=== PATIENT | female | born 1955 | race Caucasian/White ===

== ENCOUNTER 2017-11-01 15:22 | Observation (INO) ==
--- NOTE | 2017-11-01 20:25 | Internal Med History&Physical ---
Date of Encounter: 11/01/17 Time of Encounter: 20:25 Internal Medicine - H&P: HPI Chief complaint: left flank pain, Chest pain History of present illness: Ms. Martinez is a 62 year old female with past medical history of end-stage renal disease on hemodialysis Thursday via left upper arm AV fistula who presented from outside hospital with abdominal pain and back pain that started in a.m. and did not respond to medical medication as per care home staff. The patient describes the pain to be on the left side on at her left flank that is radiating from back to the front dull aching in nature 9 out of 10 in intensity worsening over time. The patient also described several episode of loose diarrhea for the last 24 hours the patient denied any exacerbation factor or alleviating factors. CAT scan of the abdomen without contrast revealed bilateral pleural effusion, moderately enlarged heart with coronary artery calcification. Also adjacent nonobstructive getting stone was noted in the inferior pole of the left kidney. Mild aneurysmal dilatation of the infrarenal hour crura was also noted. Chest x-ray reveals cardiomegaly, pleural effusion and pulmonary congestion that is suggesting of congestive heart failure, her first troponin was was no significant abnormalities. Due to the lack of availability of maintenance hemodialysis at that hospital the patient was transferred to [facility] for further evaluation and management. Internal Medicine - H&P: Meds Aspirin [Lo-Dose Aspirin EC] 81 mg PO DAILY 11/01/17 [History] Atorvastatin [Lipitor] 80 mg PO HS 11/01/17 [History] Clopidogrel [Plavix] 75 mg PO DAILY 11/01/17 [History] Famotidine [Heartburn Prevention] 20 mg PO DAILY 11/01/17 [History] Ferrous Sulfate [Iron] 325 mg PO DAILY 11/01/17 [History] Insulin Glargine,Hum.rec.anlog [Basaglar Kwikpen U-100] 7 unit SQ HS 11/01/17 [ History] Insulin LISPRO [Humalog Kwikpen U-100] 5 unit SQ ACHS 11/01/17 [History] LevETIRAcetam [Keppra] 750 mg PO SUMOWEFR 11/01/17 [History] LevETIRAcetam [Keppra] 750 mg PO TUTHSA@0800,199911/01/17 [History] Levothyroxine Sodium [Levoxyl] 25 mcg PO DAILY 11/01/17 [History] Loperamide [Imodium] 4 mg PO PRN PRN MDD 6 tablets 11/01/17 [History] Loratadine [Allergy Relief] 10 mg PO DAILY 11/01/17 [History] Losartan Potassium [Cozaar] 50 mg PO DAILY 11/01/17 [History] Melatonin [Melatin] 3 mg PO HS 11/01/17 [History] Ondansetron HCl [Zofran] 4 mg PO Q6H PRN 11/01/17 [History] Renal Vitamin [Renal Caps Softgel] 1 mg PO DAILY 11/01/17 [History] Sevelamer [Renvela] 800 mg PO TID 11/01/17 [History] Bisoprolol Fumarate 2.5 mg PO QAM 11/02/17 [History] Lidocaine/Prilocaine [Medolor Blaine 2.5-2.5% Crm-Dress] 1 each TP MOWEFR 11/02/17 [History] Tiotropium [Spiriva] 18 mcg IH QAM 11/02/17 [History] LORazepam [Ativan] 0.5 mg PO BID 4 Days #8 tablet 11/06/17 [Rx] Tramadol HCl [Ultram] 50 mg PO Q6H PRN 4 Days #16 tablet 11/06/17 [Rx] 3 Allergy/AdvReac Type Severity Reaction Status Date / Time Iodinated Contrast- Oral and Allergy Rash Verified 11/01/17 22:30 IV Dye Sulfa (Sulfonamide Allergy Rash Verified 11/01/17 22:30 Antibiotics) sulfamethoxazole Allergy Rash Verified 11/01/17 22:30 [From Bactrim] trimethoprim Allergy Rash Verified 11/01/17 22:30 All Systems PM: A 10-system review of systems was performed and is negative for pertinent findings except as documented above in the HPI. - Constitutional Constitutional: no chills, no fever(s), no night sweats - Cardiovascular Cardiovascular ROS IM: chest pain, no diaphoresis, no dyspnea, no lightheadedness, no palpitations, no syncope - Respiratory Respiratory: no cough, no dyspnea, no wheezing, no excessive phlegm production - Gastrointestinal Gastrointestinal: diarrhea, no abdominal pain, no hematemesis, no hematochezia, no melena, no nausea, no vomiting - Genitourinary Genitourinary: no change in urinary stream, no dysuria, no flank pain, no hematuria - Neurological Neurological ROS: no confusion, no convulsions, no focal weakness, no numbness, no tingling, no tremor(s) - Constitutional Vitals: Temp Pulse Resp BP Pulse Ox 97.7 F 69 14 178/98 99 11/01/17 19:04 11/01/17 19:04 11/01/17 19:04 11/01/17 19:04 11/01/17 19:04 General appearance: Present: A&O X 3 - Head Head exam: Present: atraumatic, normocephalic - Neck Neck exam general surgery: Present: supple, trachea midline. Absent: lymphadenopathy - Respiratory Respiratory exam: Present: CTAB. Absent: accessory muscle use, rales, rhonchi, wheezes - Cardiovascular Cardiovascular exam: Present: RRR, +S1, +S2. Absent: diastolic murmur, gallop, rubs, systolic murmur - GI/Abdominal GI/Abdominal exam: Present: normal bowel sounds, soft, no peritoneal signs. Absent: distended, tenderness - Extremities Exam Extremities exam: Present: warm, radial pulses palpable and symmetrical. Absent : calf tenderness, cyanotic, pedal edema Internal Med - H&P Results - Labs CBC & Chem 7: 11/06/17 04:12 11/06/17 04:12 - Assessment and plan (1) Congestive heart failure (CHF) Status: Chronic Assessment and plan: Reported chest pain and flank pain, her imaging studies are suggestive of bilateral pleural effusion and cardiomegaly and CHF exacerbation not be excluded Giving that the patient is ESRD, utilizing diuretics for volume control is a challenging. Nephrology will be consulted to consider pure ultrafiltration for volume control. We will also recommend pulmonary consult for further evaluation of bilateral pleural effusion - CPP x 1 more, 8 hr after the 1st one - EKG in AM - ASA - O2 to keep SpO2 > 92% - 2D Echo - CBCD, BMP in AM - Fasting lipids - Tylenol 650 mg PO q 4-6 hr PRN pain - Home meds Qualifiers: Heart failure type: diastolic Heart failure chronicity: acute on chronic Qualified Code(s): I50.33 - Acute on chronic diastolic (congestive) heart failure (2) Essential (primary) hypertension Status: Chronic (3) ESRD (end stage renal disease) Status: Chronic (4) Anemia in chronic kidney disease (CKD) Status: Chronic Assessment and plan: HGB target 10-11, nephrology to f/u Qualifiers: Chronic kidney disease stage: on chronic dialysis Qualified Code(s): N18.6 - End stage renal disease; D63.1 - Anemia in chronic kidney disease; Z99.2 - Dependence on renal dialysis (5) Chronic kidney disease-mineral and bone disorder Status: Chronic Assessment and plan: Cont phos binder, phos restricted diet. (6) Left flank pain Status: Resolved Assessment and plan: Most likely musclo-skeletal related (7) DVT prophylaxis Status: Acute Assessment and plan: We will place SCDs - Time Spent With Patient Total time spent is greater than 50% in coordination of care (as documented) at patient's floor/unit and/or counseling patient:
[2017-11-01] MEDS ORDERED: traMADol 50 MG TABLET PO PRN (22:27)
[2017-11-01] MEDS ORDERED: Ondansetron ODT 4 MG TAB.RAPDIS PO PRN (22:27)
[2017-11-01] MEDS ORDERED: *HR* Dextrose 50 % in Water (Syg) 50 ML SYRINGE IVP PRN (22:31)
[2017-11-01] MEDS ORDERED: Dextrose Gel 15 GM/37.5 ML TUBE PO PRN ×2 (22:31)
[2017-11-01] MEDS ORDERED: D5% in Water 1,000 ML IVC PRN (22:31)
[2017-11-01] MEDS ORDERED: Naloxone 0.4 MG/ML INJ IVP PRN (22:58)
[2017-11-01] MEDS: *HR* LORazepam 0.5 MG TABLET PO SCH (23:20)
[2017-11-01 23:57] LABS: Chol/HDL Ratio 3.5 (0-4.9)
[2017-11-02 00:48] LABS: Activated Partial Thrombo Time 28.5 Seconds (26.0-36.0); INR 1.1; Prothrombin Time 11.5 Seconds (9.4-12.1)
[2017-11-02 05:16] LABS: Basophils % 0.3 %; Eosinophils # 0.3 K/mcL (0.0-0.6); Eosinophils % 3.6 %; Hematocrit 23.3 % (35.3-44.9); Immature Granulocytes % 0.4 % (0-4); Lymphocytes # 1.8 K/mcL (0.6-4.6); Lymphocytes % 24.6 %; Mean Corpuscular Hemoglobin 27.7 pg (28.0-33.3); Mean Corpuscular Volume 92.1 fL (83.0-100.0); Mean Platelet Volume 10.3 fL (9.4-12.4); Monocytes # 0.3 K/mcL (0.0-1.3); Platelet Count 203 K/mcL (140-400); Red Blood Count 2.53 M/mcL (3.82-4.97); Red Cell Distribution Width 16.6 % (11.5-14.5); Segmented Neutrophils % 67.1 %
[2017-11-02 05:32] LABS: Albumin 3.5 g/dL (3.5-5.7); Albumin/Globulin Ratio 1.4 (1.1-2.2); Bilirubin,Total 0.4 mg/dL (0.3-1.0); Globulin 2.5 g/dL (2.4-3.5); Magnesium 2.4 mg/dL (1.6-2.6); Potassium 5.1 mEq/L (3.5-5.1)
[2017-11-02] MEDS: Levothyroxine 25 MCG TABLET PO SCH (06:06)
[2017-11-02] MEDS ORDERED: NON-FORMULARY MEDICATION 1 EACH EACH (Insulin Lispro [Humalog Kwikpen U-100] 5 UNIT) SQ SCH (08:00)
[2017-11-02] MEDS: Aspirin Enteric Coated 81 MG Tablet PO SCH (08:16)
[2017-11-02] MEDS: Loratadine 10 MG TABLET PO SCH (08:16)
[2017-11-02] MEDS: Famotidine 20 MG TABLET PO SCH (08:16)
[2017-11-02] MEDS: BISOPROLOL FUMARATE 5 MG PO SCH (08:17)
[2017-11-02] MEDS: Insulin LISPRO 300 UNITS/3 ML VIAL SQ SCH ×4 (08:17→21:54)
[2017-11-02] MEDS: Renal Vitamin 1 MG CAPSULE PO SCH (08:17)
[2017-11-02] MEDS: *HR* LORazepam 0.5 MG TABLET PO SCH ×2 (08:17→21:54)
[2017-11-02] MEDS ORDERED: LEVETIRACETAM 750 MG PO SCH ×2 (09:00)
[2017-11-02] MEDS: levETIRAcetam 250 MG TABLET PO SCH (11:46)
--- NOTE | 2017-11-02 14:47 | Nephrology Consult Note ---
Date of Encounter: 11/02/17 Time of Encounter: 14:41 Assessment and Plan (1) ESRD (end stage renal disease) on dialysis Current Visit: Yes Status: Acute HD MWF in [place] with Dr. Griffith. Avoid nephrotoxins and renal dose all medications. HD ordered for today. (2) Anemia in chronic kidney disease (CKD) Current Visit: Yes Status: Acute Goal Hgb 10-11. Hgb is 7. Will order iron profile. Aranesp ordered, will hold off on transfusion since patient is not symptomatic. Qualifiers: Chronic kidney disease stage: on chronic dialysis Qualified Code(s): N18.6 - End stage renal disease; D63.1 - Anemia in chronic kidney disease; Z99.2 - Dependence on renal dialysis (3) Congestive heart failure (CHF) Current Visit: Yes Status: Acute Per primary team. Qualifiers: Qualified Code(s): I50.9 - Heart failure, unspecified History of Present Illness - Reason for Consult Consult date: 11/02/17 end stage renal disease - Chief Complaint abdominal/back pain - History of Present Illness Ms. Martinez is a 62 year old female with ESRD on HD MWF in [place]. She is under the care of Dr. Griffith. She was sent due to a water issue at her home HD facility. Patient is poor historian and most information was found in chart. Upon examination, patient would not state name, , or location. I asked RN if this was normal for her, she did call [facility] and they reported this is not normal for her, she is typically A/O. This is her usual HD day and HD will be ordered by Dr. Espinal. Past Med Surg Social Fam HX - Past Medical History Medical history: CHF, CVA, hypertension Additional medical history: psychosis anemia Psychiatric history: schizophrenia - Social History Smoking Status: Smoker, status unknown Medications and Allergies Aspirin [Lo-Dose Aspirin EC] 81 mg PO DAILY 11/01/17 [History] Atorvastatin [Lipitor] 80 mg PO HS 11/01/17 [History] Clopidogrel [Plavix] 75 mg PO DAILY 11/01/17 [History] Famotidine [Heartburn Prevention] 20 mg PO DAILY 11/01/17 [History] Ferrous Sulfate [Iron] 325 mg PO DAILY 11/01/17 [History] Insulin Glargine,Hum.rec.anlog [Basaglar Kwikpen U-100] 7 unit SQ HS 11/01/17 [ History] Insulin LISPRO [Humalog Kwikpen U-100] 5 unit SQ ACHS 11/01/17 [History] LORazepam [Ativan] 0.5 mg PO BID 11/01/17 [History] LevETIRAcetam [Keppra] 750 mg PO SUMOWEFR 11/01/17 [History] LevETIRAcetam [Keppra] 750 mg PO TUTHSA@0800,199911/01/17 [History] Levothyroxine Sodium [Levoxyl] 25 mcg PO DAILY 11/01/17 [History] Loperamide [Imodium] 4 mg PO PRN PRN MDD 6 tablets 11/01/17 [History] Loratadine [Allergy Relief] 10 mg PO DAILY 11/01/17 [History] Losartan Potassium [Cozaar] 50 mg PO DAILY 11/01/17 [History] Melatonin [Melatin] 3 mg PO HS 11/01/17 [History] Ondansetron HCl [Zofran] 4 mg PO Q6H PRN 11/01/17 [History] Renal Vitamin [Renal Caps Softgel] 1 mg PO DAILY 11/01/17 [History] Sevelamer [Renvela] 800 mg PO TID 11/01/17 [History] Tramadol HCl [Ultram] 50 mg PO Q6H PRN 11/01/17 [History] Bisoprolol Fumarate 2.5 mg PO QAM 11/02/17 [History] Lidocaine/Prilocaine [Medolor [place] 2.5-2.5% Crm-Dress] 1 each TP MOWEFR 11/02/17 [History] Tiotropium [Spiriva] 18 mcg IH QAM 11/02/17 [History] 3 Allergy/AdvReac Type Severity Reaction Status Date / Time Iodinated Contrast- Oral and Allergy Rash Verified 11/01/17 22:30 IV Dye Sulfa (Sulfonamide Allergy Rash Verified 11/01/17 22:30 Antibiotics) sulfamethoxazole Allergy Rash Verified 11/01/17 22:30 [From Bactrim] trimethoprim Allergy Rash Verified 11/01/17 22:30 Review of Systems ROS unobtainable: due to mental status Exam - Vital Signs Vital signs: Initial Vital Signs Temp Pulse Resp BP Pulse Ox 97.7 F 69 14 178/98 99 11/01/17 19:04 11/01/17 19:04 11/01/17 19:04 11/01/17 19:04 11/01/17 19:04 Vital Signs - Last 8 Hours Temp Pulse Resp BP Pulse Ox 11/02/17 10:01 98.9 F 69 18 154/83 100 Intake and Output 11/01/17 11/02/17 11/02/17 23:59 07:59 15:59 Intake Total 100 / 100 Output Total 200 / 200 Balance -100 / -100 Intake: Oral 100 / 100 Output: Urine 200 / 200 Other: Meal Lunch Percent of Meal Consumed 5% Stool Size Large Stool Consistency soft Stool Color Brown # Voids 1 # Bowel Movements 1 Weight 58.1 kg 58.2 kg Blood Glucose* 145 153 194 Patient Weight 11/02/17 23:59 Weight 58.2 kg - General Appearance General appearance: chronically ill, frail EENT: ATNC Neck: supple Respiratory: clear Cardiology: no edema, normal S1, normal S2 - Dialysis Access Dialysis Vascular Access: Arteriovenous Fistula thrill: Yes bruit: Yes Gastrointestinal: normoactive bowel sounds, no tenderness, no guarding Integumentary: no rash, warm and dry Neurologic: confused Psychiatric: mood/affect appropriate, cooperative Results - Lab Results 11/02/17 05:00 11/02/17 05:00 Most recent lab results Calcium 9.0 mg/dL (8.6-10.3) 11/02/17 05:00 Phosphorus 6.0 mg/dL (2.7-4.5) H 11/02/17 05:00 Magnesium 2.4 mg/dL (1.6-2.6) 11/02/17 05:00 Consult Discharge Plan - Plan Referrals: NONE,PCP [Primary Care Provider] -
[2017-11-02 15:18] LABS: Bilirubin,Urine Negative (Negative); Blood,Urine Large (Negative); Clarity,Urine Clear (Clear); Color,Urine Yellow (Yellow); Glucose,Urine (UA) Normal (Normal); Ketones,Urine Negative (Negative); Leukocyte Esterase,Urine Negative (Negative); Nitrite,Urine Negative (Negative); Protein,Urine Negative (Neg-Trace); Specific Gravity,Urine 1.025 (1.010-1.025); Urobilinogen,Urine Normal (Normal)
[2017-11-02 15:20] LABS: Bacteria,Urine None Seen per hpf (None-Few); Hyaline Casts,Urine None Seen per lpf (None-Few); Squamous Epithelial Cell,Urine Many per lpf (None-Few); WBC,Urine 0-3 per hpf (0-3)
[2017-11-02] MEDS ORDERED: 0.9 % Sodium Chloride 250 ML IVC PRN (15:41)
[2017-11-02 15:43] LABS: Hepatitis B Surface Antigen Nonreactive (Nonreactive)
[2017-11-02] MEDS ORDERED: 0.9 % Sodium Chloride 1,000 ML PRIME SCH (15:45)
[2017-11-02 15:50] LABS: Hepatitis B Surface Antibody 8.01 mIU/mL
--- NOTE | 2017-11-02 16:27 | Electrocardiograph Report ---
[place] [id number] Test Date: 2017-11-01 Pat Name: Zamzam Martinez Department: 111 Room: 2A22 Gender: F Sustainability Analyst: GYPSY : 1955 Requested By: Dorie Hammer Order Number: [id number] Reading MD: Rachele Cheng Measurements Intervals [place] Rate: 70 P: 16 RI: 130 QRS: 49 QRSD: 89 T: 61 QT: 422 QTc: 443 Interpretive Statements SINUS RHYTHM MODERATE T-WAVE ABNORMALITY, CONSIDER ANTERIOR ISCHEMIA Electronically Signed On 11-02-2017 16:25:43 EDT by Rachele Cheng
[2017-11-02] MEDS: *HR* Heparin 5,000 UNIT/ML VIAL SQ SCH (17:47)
[2017-11-02] MEDS ORDERED: NON-FORMULARY MEDICATION 1 EACH EACH (Insulin Glargine,Hum.Rec.Anlog [Basaglar Kwikpen U-1 SQ SCH (21:00)
[2017-11-02] MEDS: Melatonin 3 MG TABLET PO SCH (21:54)
[2017-11-02] MEDS: Insulin DETEMIR 100 UNIT/ML X5UNITS SQ SCH (21:54)
[2017-11-02 22:55] LABS: Estimated Average Glucose 126 mg/dl
--- NOTE | 2017-11-02 23:18 | Internal Med Progress Note ---
Date of Encounter: 11/02/17 Time of Encounter: 23:18 - Assessment and plan (1) Chest pain Current Visit: Yes Status: Acute Qualifiers: Chest pain type: other chest pain Qualified Code(s): R07.89 - Other chest pain; R07.8 - Other chest pain (2) Left flank pain Current Visit: Yes Status: Acute (3) Difficulty breathing Current Visit: Yes Status: Acute (4) Type 2 diabetes mellitus with ESRD (end-stage renal disease) Current Visit: Yes Status: Acute (5) Hypertensive renal disease with renal failure Current Visit: Yes Status: Acute (6) Anemia in chronic kidney disease (CKD) Current Visit: Yes Status: Acute Qualifiers: Chronic kidney disease stage: on chronic dialysis Qualified Code(s): N18.6 - End stage renal disease; D63.1 - Anemia in chronic kidney disease; Z99.2 - Dependence on renal dialysis (7) Acute on chronic diastolic heart failure Current Visit: Yes Status: Acute - Time Spent With Patient Total time spent is greater than 50% in coordination of care (as documented) at patient's floor/unit and/or counseling patient: 25 - 35 minutes - Subjective Interval history: .. The patient feels good today. She had hemodialysis today. Denies chest pain. Denies difficulty breathing. She does have mild cough but not wheezing. He denies abdominal pain, nausea and vomiting. She does not make any urine. OBJECTIVE: .. Skin: Free of rash and discoloration ENMT: Oral/pharyngeal mucosa is normal in appearance. Eyes: Sclera is white. There is no discharge from eyes. Respiratory: Normal breath sounds; no crackles or wheezes. CV: Heart is regular; no gallop or murmur. GI: Abdomen is soft and not tender. There is no palpable mass or visceromegaly. Neuro: There is no focal deficits. ASSESSMENT AND PLAN: .. Chest pain/left flank pain. Troponin is normal. EKG is normal too. The pain is likely musculoskeletal. This may be early pneumonia. Will repeat chest x- ray. Difficulty breathing. Likely secondary to fluid overload in end-stage renal disease.There may be some component from diastolic heart failure. We appreciate help from nephrology. We are ordering a chest x-ray for tomorrow. End-stage renal disease on hemodialysis. It is secondary to long-standing type 2 diabetes mellitus and hypertension. She has developed anemia and chronic renal disease. Hypertension is treated with losartan. Type 2 diabetes mellitus is treated with diabetic diet, Levemir and Humalog. Anemia of chronic renal disease is treated with Aranesp and ferrous sulfate. Chronic diastolic heart failure, with possible acute component. See echocardiogram. It shows ejection fraction of 50-55%. It shows diastolic dysfunction with elevated filling pressures. Treatment is with mild fluid restriction and hemodialysis. NOTES: Ordering CBC and BMP in the morning. DISPOSITION: We will discharge her home, but stable. - Constitutional Vitals: Temp Pulse Resp BP Pulse Ox 97.7 F 69 18 140/70 100 11/02/17 19:50 11/02/17 14:50 11/02/17 19:50 11/02/17 19:50 11/02/17 14:50 General appearance: Present: A&O X 3 Internal Medicine: Result - Labs CBC & Chem 7: 11/02/17 05:00 11/02/17 05:00 Labs: Short CBC 11/02/17 Range/Units 05:00 WBC 7.4 (4.3-11.1) K/mcL Hgb 7.0 L (11.5-15.4) g/dL Hct 23.3 L (35.3-44.9) % Plt Count 203 (140-400) K/mcL Neutrophils # 5.0 (1.6-8.9) K/mcL BMP 11/02/17 05:00 Sodium 137 Potassium 5.1 Chloride 104 Carbon Dioxide 23 BUN 54 H Creatinine 7.36 H Glucose 151 H Calcium 9.0 Cardiac Enzymes 11/01/17 11/02/17 11/02/17 Range/Units 23:24 05:00 11:29 Troponin I < 0.03 < 0.03 < 0.03 (< 0.04) ng/mL Liver Function 11/02/17 Range/Units 05:00 Total Bilirubin 0.4 (0.3-1.0) mg/dL AST 10 L (13-39) Units/L ALT 7 (7-52) Units/L Alkaline Phosphatase 200 H (34-104) Units/L Albumin 3.5 (3.5-5.7) g/dL Urine 11/02/17 Range/Units 14:56 Urine Color Yellow (Yellow) Urine Clarity Clear (Clear) Urine pH 6.0 (5.0-8.0) pH Units Ur Specific [place] 1.025 (1.010-1.025) Urine Protein Negative (Neg-Trace) mg/dL Urine Glucose (UA) Normal (Normal) mg/dL - ABG Interpretation ABG results: PT/INR, D-dimer PT 11.5 Seconds (9.4-12.1) 11/01/17 23:24 - Impressions Impressions Echocardiogram 11/02/17 06:17 Impressions: LVEF 50-55%. Mild segmental LV dysfunction. Diastolic dysfunction with elevated filling pressures. Normal right ventricular structure and function. Severely dilated left atrium. Mild-moderate mitral regurgitation. Mild-moderate tricuspid regurgitation. Mild pulmonic regurgitation. Moderate pulmonary hypertension. There is a small pericardial effusion present along the inferolateral border of the LV. There is no echocardiographic evidence of tamponade. Left Ventricular Wall Motion: Rest Echo Findings The mid inferior septal and basal inferior septal payne were hypokinetic. All other wall segments showed normal motion. Findings: Study Quality * Technically adequate exam. ECG Findings * Normal sinus rhythm. Left Ventricle * LVEF 50-55%. * Diastolic dysfunction with elevated filling pressures. * Normal LV chamber size and wall thickness. Right Ventricle * Normal right ventricular structure and function. Left Atrium * Severely dilated left atrium. Right Atrium * Normal right atrial size. Mitral Valve * Normal mitral valve structure. * No mitral stenosis. * Mild mitral annular calcification * Mild-moderate mitral regurgitation. Aortic Valve * No aortic regurgitation. * Trileaflet aortic valve. * Mildly thickened and calcified aortic valve leaflets. * No aortic stenosis. Tricuspid Valve * Normal tricuspid valve structure. * Mild-moderate tricuspid regurgitation. * Estimated RA pressure is 8 mmHg. * Estimated RVSP is 56 mmHg. * Moderate pulmonary hypertension. Pulmonic Valve * Pulmonic valve is not well visualized. * No pulmonic stenosis. * Mild pulmonic regurgitation. Pulmonary Artery * Pulmonary artery not well visualized. Aorta * Normally sized aortic root. Pericardium * There is a small pericardial effusion present along the inferolateral border of the LV. * There is no echocardiographic evidence of tamponade. Interatrial Septum * No evidence of PFO by color Doppler. IVC * The IVC is not dilated. * < 50% respiratory change. Consult Discharge Plan - Plan Referrals: NONE,PCP [Primary Care Provider] -
[2017-11-03] MEDS: Levothyroxine 25 MCG TABLET PO SCH (06:32)
[2017-11-03] MEDS: *HR* Heparin 5,000 UNIT/ML VIAL SQ SCH ×2 (06:32→16:25)
[2017-11-03 07:22] LABS: Basophils % 0.3 %; Eosinophils # 0.2 K/mcL (0.0-0.6); Eosinophils % 2.6 %; Hematocrit 22.8 % (35.3-44.9); Immature Granulocytes % 0.3 % (0-4); Lymphocytes # 1.9 K/mcL (0.6-4.6); Lymphocytes % 27.8 %; Mean Corpuscular HGB Conc 30.7 g/dL (31.6-35.5); Mean Corpuscular Hemoglobin 27.6 pg (28.0-33.3); Mean Corpuscular Volume 89.8 fL (83.0-100.0); Mean Platelet Volume 10.5 fL (9.4-12.4); Monocytes # 0.4 K/mcL (0.0-1.3); Monocytes % 5.1 %; Neutrophils # 4.4 K/mcL (1.6-8.9); Platelet Count 219 K/mcL (140-400); Red Blood Count 2.54 M/mcL (3.82-4.97); Red Cell Distribution Width 16.3 % (11.5-14.5); Segmented Neutrophils % 63.9 %
[2017-11-03] MEDS: Insulin LISPRO 300 UNITS/3 ML VIAL SQ SCH ×4 (07:42→20:54)
[2017-11-03] MEDS: Aspirin Enteric Coated 81 MG Tablet PO SCH (07:43)
[2017-11-03] MEDS: *HR* LORazepam 0.5 MG TABLET PO SCH ×2 (07:43→20:35)
[2017-11-03] MEDS: Loratadine 10 MG TABLET PO SCH (07:43)
[2017-11-03] MEDS: Famotidine 20 MG TABLET PO SCH (07:43)
[2017-11-03] MEDS: Renal Vitamin 1 MG CAPSULE PO SCH (07:44)
[2017-11-03] MEDS: BISOPROLOL FUMARATE 5 MG PO SCH (07:44)
[2017-11-03 07:47] LABS: Calcium 9.2 mg/dL (8.6-10.3)
[2017-11-03] MEDS: levETIRAcetam 250 MG TABLET PO SCH ×2 (07:50→20:53)
[2017-11-03 08:07] LABS: Vitamin B12 666 pg/mL (250-1100)
[2017-11-03 08:18] LABS: Folate > 22.3 ng/mL (3.0-16.0)
--- NOTE | 2017-11-03 10:55 | Internal Med Progress Note ---
Date of Encounter: 11/03/17 Time of Encounter: 10:53 - Assessment and plan (1) ESRD (end stage renal disease) Current Visit: Yes Status: Chronic Assessment and plan: Management per nephrology (2) Anemia in chronic kidney disease (CKD) Current Visit: Yes Status: Chronic Assessment and plan: Hb 7 Not at goal Type and screen ordered Discussed with nephrology, for possible transfusion during HD Qualifiers: Chronic kidney disease stage: on chronic dialysis Qualified Code(s): N18.6 - End stage renal disease; D63.1 - Anemia in chronic kidney disease; Z99.2 - Dependence on renal dialysis (3) Chronic kidney disease-mineral and bone disorder Current Visit: Yes Status: Acute (4) Congestive heart failure (CHF) Current Visit: Yes Status: Acute Assessment and plan: ECHO noted for EF of 50-55%, diastolic dysfunction with elevated filling pressures, continue HD CXR shows pulmonary edema, continue fluid restriction Qualifiers: Heart failure type: diastolic Heart failure chronicity: acute on chronic Qualified Code(s): I50.33 - Acute on chronic diastolic (congestive) heart failure (5) Essential (primary) hypertension Current Visit: Yes Status: Chronic Assessment and plan: currently controlled, continue same meds (6) Left flank pain Current Visit: Yes Status: Acute Assessment and plan: see below (7) Chest pain Current Visit: Yes Status: Acute Assessment and plan: Trop and EKG unremarkable, however, CXR with pleural effusion L>R Also shows possible retrocardiac infiltrate Patient has no cough, afebrile, no white count It is possible that patient's pain is pleuritic due to pleural effusion For Continued HD, will assess with Chest CT and for thoracentensis if pleural effusion is persistent Qualifiers: Chest pain type: other chest pain Qualified Code(s): R07.89 - Other chest pain; R07.8 - Other chest pain - Time Spent With Patient Total time spent is greater than 50% in coordination of care (as documented) at patient's floor/unit and/or counseling patient: - Subjective Interval history: Seen and evaluated at the bedside she is oriented to place and person only, disoriented to time, baseline unknown She is laying flat without any form of distress We will transfuse with blood today (2 units with HD) Rpt CXR noted for pulmonary edema as well as bilateral pleural effusions L>R, possible retrocardiac infiltrates, we will assess with CT chest after a session on HD, patient is asymptomatic - Constitutional Vitals: Temp Pulse Resp BP Pulse Ox 97.9 F 69 17 152/81 92 11/03/17 07:35 11/03/17 07:35 11/03/17 07:35 11/03/17 07:35 11/03/17 07:35 General appearance: Present: A&O X 2, pleasant, no acute distress - Head Head exam: Present: atraumatic, normocephalic - Eye Eye exam: Present: PERRL, conjuntiva pink, sclera anicteric Pupils: Present: PERRL - Neck Neck exam general surgery: Present: supple, trachea midline. Absent: lymphadenopathy - Respiratory Respiratory exam: Present: CTAB. Absent: accessory muscle use, rales, rhonchi, wheezes - Cardiovascular Cardiovascular exam: Present: RRR, +S1, +S2. Absent: diastolic murmur, gallop, rubs, systolic murmur - GI/Abdominal GI/Abdominal exam: Present: normal bowel sounds, soft, no peritoneal signs. Absent: distended, tenderness - Extremities Exam Extremities exam: Present: warm, radial pulses palpable and symmetrical. Absent : calf tenderness, cyanotic, pedal edema - Neurological Exam Neurological exam: Present: alert, CN II-XII intact, no focal deficits. Absent : oriented X3, pronater drift, facial droop, speech deficit - Skin Skin exam: Present: dry, intact Internal Medicine: Result - Labs CBC & Chem 7: 11/03/17 06:42 11/03/17 06:42 Labs: Short CBC 11/03/17 Range/Units 06:42 WBC 6.8 (4.3-11.1) K/mcL Hgb 7.0 L (11.5-15.4) g/dL Hct 22.8 L (35.3-44.9) % Plt Count 219 (140-400) K/mcL Neutrophils # 4.4 (1.6-8.9) K/mcL BMP 11/03/17 06:42 Sodium 141 Potassium 4.0 Chloride 102 Carbon Dioxide 30 H BUN 21 Creatinine 4.01 H Glucose 88 Calcium 9.2 Cardiac Enzymes 11/02/17 Range/Units 11:29 Troponin I < 0.03 (< 0.04) ng/mL Urine 11/02/17 Range/Units 14:56 Urine Color Yellow (Yellow) Urine Clarity Clear (Clear) Urine pH 6.0 (5.0-8.0) pH Units Ur Specific [place] 1.025 (1.010-1.025) Urine Protein Negative (Neg-Trace) mg/dL Urine Glucose (UA) Normal (Normal) mg/dL - ABG Interpretation ABG results: PT/INR, D-dimer PT 11.5 Seconds (9.4-12.1) 11/01/17 23:24 - Impressions Impressions Echocardiogram 11/02/17 06:17 Impressions: LVEF 50-55%. Mild segmental LV dysfunction. Diastolic dysfunction with elevated filling pressures. Normal right ventricular structure and function. Severely dilated left atrium. Mild-moderate mitral regurgitation. Mild-moderate tricuspid regurgitation. Mild pulmonic regurgitation. Moderate pulmonary hypertension. There is a small pericardial effusion present along the inferolateral border of the LV. There is no echocardiographic evidence of tamponade. Left Ventricular Wall Motion: Rest Echo Findings The mid inferior septal and basal inferior septal payne were hypokinetic. All other wall segments showed normal motion. Findings: Study Quality * Technically adequate exam. ECG Findings * Normal sinus rhythm. Left Ventricle * LVEF 50-55%. * Diastolic dysfunction with elevated filling pressures. * Normal LV chamber size and wall thickness. Right Ventricle * Normal right ventricular structure and function. Left Atrium * Severely dilated left atrium. Right Atrium * Normal right atrial size. Mitral Valve * Normal mitral valve structure. * No mitral stenosis. * Mild mitral annular calcification * Mild-moderate mitral regurgitation. Aortic Valve * No aortic regurgitation. * Trileaflet aortic valve. * Mildly thickened and calcified aortic valve leaflets. * No aortic stenosis. Tricuspid Valve * Normal tricuspid valve structure. * Mild-moderate tricuspid regurgitation. * Estimated RA pressure is 8 mmHg. * Estimated RVSP is 56 mmHg. * Moderate pulmonary hypertension. Pulmonic Valve * Pulmonic valve is not well visualized. * No pulmonic stenosis. * Mild pulmonic regurgitation. Pulmonary Artery * Pulmonary artery not well visualized. Aorta * Normally sized aortic root. Pericardium * There is a small pericardial effusion present along the inferolateral border of the LV. * There is no echocardiographic evidence of tamponade. Interatrial Septum * No evidence of PFO by color Doppler. IVC * The IVC is not dilated. * < 50% respiratory change. Chest X-Ray 11/03/17 08:17 IMPRESSION: 1. Pulmonary edema with suspected bilateral pleural effusions, left side greater than right. 2. Left retrocardiac infiltrate, likely related to atelectasis; however, superimposed pneumonia cannot be excluded. D/ / 11/03/2017 08:43:01 Jaron Duncan MD / [email or web address] Interpreting Provider: Jaron Duncan MD Consult Discharge Plan - Plan Referrals: NONE,PCP [Primary Care Provider] -
[2017-11-03] MEDS: Melatonin 3 MG TABLET PO SCH (20:35)
[2017-11-03] MEDS: Insulin DETEMIR 100 UNIT/ML X5UNITS SQ SCH (20:54)
--- NOTE | 2017-11-03 22:18 | Nephrology Progress Note ---
Date of Encounter: 11/03/17 Time of Encounter: 09:30 - Assessment and Plan (1) ESRD (end stage renal disease) on dialysis Current Visit: Yes Status: Acute HD MWF. Renal dose medications. renal diet. (2) Anemia in chronic kidney disease (CKD) Current Visit: Yes Status: Chronic Transfuse as needed. Qualifiers: Chronic kidney disease stage: on chronic dialysis Qualified Code(s): N18.6 - End stage renal disease; D63.1 - Anemia in chronic kidney disease; Z99.2 - Dependence on renal dialysis Subjective Principal diagnosis: ESRD Interval history: Patient seen. No new complaint. No bleeding. Objective - Vital Signs Vital signs: Vital Signs Temp Pulse Resp BP Pulse Ox 11/03/17 19:26 98.1 F 74 18 180/83 99 11/03/17 15:29 98.5 F 69 17 138/74 100 11/03/17 11:59 98 F 67 18 137/81 100 11/03/17 07:35 97.9 F 69 17 152/81 92 11/03/17 03:46 97.8 F 62 17 123/77 100 11/03/17 00:22 97.8 F 71 103/59 100 Intake and Output 11/03/17 11/03/17 11/03/17 07:59 15:59 23:59 Intake Total 0 / 0 240 / 240 300 / 300 Output Total 0 / 0 Balance 0 / 0 240 / 240 300 / 300 Intake: Oral 0 / 0 240 / 240 300 / 300 Output: Urine 0 / 0 Other: Meal Lunch pudding,ice cream,crackers Percent of Meal Consumed 50% 85% # Voids 1 Weight 64.1 kg Blood Glucose* 110 95 221 Patient Weight 11/03/17 23:59 Weight 64.1 kg - General Appearance General appearance: Present: well-developed, well-nourished EENT: Present: ATNC Neck: Present: supple Cardiology: Present: regular rate Additional Comments: Patient is alert, but does not answer questions. Psychiatric: Present: mood/affect appropriate - Lab 11/03/17 06:42 11/03/17 06:42 Most recent lab results Calcium 9.2 mg/dL (8.6-10.3) 11/03/17 06:42 Phosphorus 6.0 mg/dL (2.7-4.5) H 11/02/17 05:00 Magnesium 2.4 mg/dL (1.6-2.6) 11/02/17 05:00 Consult Discharge Plan - Plan Referrals: NONE,PCP [Primary Care Provider] - (patient is from [facility])
[2017-11-04 04:55] LABS: Basophils % 0.2 %; Eosinophils # 0.3 K/mcL (0.0-0.6); Eosinophils % 3.2 %; Hematocrit 23.2 % (35.3-44.9); Hemoglobin 7.3 g/dL (11.5-15.4); Immature Granulocytes % 0.8 % (0-4); Lymphocytes # 2.6 K/mcL (0.6-4.6); Lymphocytes % 29.9 %; Mean Corpuscular HGB Conc 31.5 g/dL (31.6-35.5); Mean Corpuscular Hemoglobin 28.1 pg (28.0-33.3); Mean Corpuscular Volume 89.2 fL (83.0-100.0); Monocytes # 0.4 K/mcL (0.0-1.3); Monocytes % 4.6 %; Neutrophils # 5.2 K/mcL (1.6-8.9); Platelet Count 219 K/mcL (140-400); Red Cell Distribution Width 16.1 % (11.5-14.5); Segmented Neutrophils % 61.3 %
[2017-11-04 05:15] LABS: Calcium 9.3 mg/dL (8.6-10.3)
[2017-11-04] MEDS: *HR* Heparin 5,000 UNIT/ML VIAL SQ SCH ×2 (06:17→16:47)
[2017-11-04] MEDS: Levothyroxine 25 MCG TABLET PO SCH (06:17)
[2017-11-04] MEDS ORDERED: 0.9 % Sodium Chloride 250 ML IVC PRN (07:38)
[2017-11-04] MEDS ORDERED: 0.9 % Sodium Chloride 1,000 ML PRIME SCH (07:45)
[2017-11-04] MEDS: Insulin LISPRO 300 UNITS/3 ML VIAL SQ SCH ×4 (07:54→20:33)
[2017-11-04] MEDS: Famotidine 20 MG TABLET PO SCH (07:55)
[2017-11-04] MEDS: *HR* LORazepam 0.5 MG TABLET PO SCH ×2 (07:55→20:12)
[2017-11-04] MEDS: Loratadine 10 MG TABLET PO SCH (07:55)
[2017-11-04] MEDS: Renal Vitamin 1 MG CAPSULE PO SCH (07:55)
[2017-11-04] MEDS: Aspirin Enteric Coated 81 MG Tablet PO SCH (07:55)
[2017-11-04] MEDS: BISOPROLOL FUMARATE 5 MG PO SCH (07:56)
[2017-11-04] MEDS: levETIRAcetam 250 MG TABLET PO SCH (07:57)
[2017-11-04] MEDS ORDERED: 0.9 % Sodium Chloride 1,000 ML ONE ×2 (08:03→10:27)
--- NOTE | 2017-11-04 09:44 | Nephrology Progress Note ---
Date of Encounter: 11/04/17 Time of Encounter: 09:38 - Assessment and Plan (1) ESRD (end stage renal disease) on dialysis Current Visit: Yes Status: Acute HD MWF in [place] with Dr. Griffith. HD ordered for today. Avoid nephrotoxins and renal dose all medications. Renal Vitamins. Renal Diet. (2) Anemia in chronic kidney disease (CKD) Current Visit: Yes Status: Chronic Goal Hgb 10-11. Hgb 7.3. On Aranesp. Vitamin B 12 666 Folate > 22.3. 2 Units PRBCS ordered by hospitalist to be given in HD. Qualifiers: Chronic kidney disease stage: on chronic dialysis Qualified Code(s): N18.6 - End stage renal disease; D63.1 - Anemia in chronic kidney disease; Z99.2 - Dependence on renal dialysis (3) Congestive heart failure (CHF) Current Visit: Yes Status: Acute Per primary team. Qualifiers: Heart failure type: diastolic Heart failure chronicity: acute on chronic Qualified Code(s): I50.33 - Acute on chronic diastolic (congestive) heart failure Subjective Principal diagnosis: ESRD Interval history: Pt seen and examined, doing well. Objective - Vital Signs Vital signs: Vital Signs Temp Pulse Resp BP Pulse Ox 11/04/17 07:39 98.2 F 76 19 190/88 100 11/04/17 04:02 98.1 F 74 16 196/89 100 11/04/17 00:12 97.9 F 81 17 184/83 100 11/03/17 19:26 98.1 F 74 18 180/83 99 11/03/17 15:29 98.5 F 69 17 138/74 100 11/03/17 11:59 98 F 67 18 137/81 100 Intake and Output 11/03/17 11/04/17 11/04/17 23:59 07:59 15:59 Intake Total 300 / 300 130 / 130 200 / 200 Output Total 0 / 0 Balance 300 / 300 130 / 130 200 / 200 Intake: Oral 300 / 300 130 / 130 200 / 200 Output: Urine 0 / 0 Other: Meal pudding,ice cream,crackers Breakfast Percent of Meal Consumed 85% 50% # Voids 1 Weight 63.2 kg Blood Glucose* 221 106 Patient Weight 11/04/17 23:59 Weight 63.2 kg - General Appearance General appearance: Present: chronically ill EENT: Present: ATNC, hearing intact, vision intact Neck: Present: supple Respiratory: Present: clear Cardiology: Present: no edema, normal S1, normal S2 Dialysis Vascular Access: Arteriovenous Fistula thrill: Yes bruit: Yes Gastrointestinal: Present: normoactive bowel sounds, no tenderness, no guarding Integumentary: Present: no rash, warm and dry Neurologic: Present: confused (Alert to self, unable to state location or time.) Psychiatric: Present: mood/affect appropriate, cooperative - Lab 11/04/17 04:33 11/04/17 04:33 Most recent lab results Calcium 9.3 mg/dL (8.6-10.3) 11/04/17 04:33 Phosphorus 6.0 mg/dL (2.7-4.5) H 11/02/17 05:00 Magnesium 2.4 mg/dL (1.6-2.6) 11/02/17 05:00 Consult Discharge Plan - Plan Referrals: NONE,PCP [Primary Care Provider] - (patient is from [facility])
--- NOTE | 2017-11-04 11:52 | Internal Med Progress Note ---
Date of Encounter: 11/04/17 Time of Encounter: 11:52 - Assessment and plan (1) ESRD (end stage renal disease) Current Visit: Yes Status: Chronic Assessment and plan: Management per nephrology (2) Anemia in chronic kidney disease (CKD) Current Visit: Yes Status: Chronic Assessment and plan: Hb 7 Not at goal Type and screen ordered, 2 units RBCS give Monitor HB Qualifiers: Chronic kidney disease stage: on chronic dialysis Qualified Code(s): N18.6 - End stage renal disease; D63.1 - Anemia in chronic kidney disease; Z99.2 - Dependence on renal dialysis (3) Chronic kidney disease-mineral and bone disorder Current Visit: Yes Status: Acute (4) Congestive heart failure (CHF) Current Visit: Yes Status: Acute Assessment and plan: ECHO noted for EF of 50-55%, diastolic dysfunction with elevated filling pressures, continue HD CXR shows pulmonary edema, continue fluid restriction Qualifiers: Heart failure type: diastolic Heart failure chronicity: acute on chronic Qualified Code(s): I50.33 - Acute on chronic diastolic (congestive) heart failure (5) Essential (primary) hypertension Current Visit: Yes Status: Chronic Assessment and plan: currently controlled, continue same meds (6) Left flank pain Current Visit: Yes Status: Acute Assessment and plan: see below (7) Chest pain Current Visit: Yes Status: Acute Assessment and plan: Trop and EKG unremarkable, however, CXR with pleural effusion L>R Also shows possible retrocardiac infiltrate Patient has no cough, afebrile, no white count It is possible that patient's pain is pleuritic due to pleural effusion For Continued HD, will assess with Chest CT and for thoracentensis a.m Qualifiers: Chest pain type: other chest pain Qualified Code(s): R07.89 - Other chest pain; R07.8 - Other chest pain - Time Spent With Patient Total time spent is greater than 50% in coordination of care (as documented) at patient's floor/unit and/or counseling patient: - Subjective Interval history: Seen and evaluated at the bedside during HD She is receiving 2 units of RBCS as ordered No new complains AAOX3 Will request Chest CT routinely a.m - Constitutional Vitals: Temp Pulse Resp BP Pulse Ox 98.2 F 76 19 190/88 100 11/04/17 07:39 11/04/17 07:39 11/04/17 07:39 11/04/17 07:39 11/04/17 07:39 General appearance: Present: A&O X 3, pleasant, no acute distress - Head Head exam: Present: atraumatic, normocephalic - Eye Eye exam: Present: PERRL, conjuntiva pink, sclera anicteric Pupils: Present: PERRL - Neck Neck exam general surgery: Present: supple, trachea midline. Absent: lymphadenopathy - Respiratory Respiratory exam: Present: CTAB. Absent: accessory muscle use, rales, rhonchi, wheezes - Cardiovascular Cardiovascular exam: Present: RRR, +S1, +S2. Absent: diastolic murmur, gallop, rubs, systolic murmur - GI/Abdominal GI/Abdominal exam: Present: normal bowel sounds, soft, no peritoneal signs. Absent: distended, tenderness - Extremities Exam Extremities exam: Present: warm, radial pulses palpable and symmetrical. Absent : calf tenderness, cyanotic, pedal edema - Neurological Exam Neurological exam: Present: alert, CN II-XII intact, oriented X3, no focal deficits. Absent: pronater drift, facial droop, speech deficit - Skin Skin exam: Present: dry Internal Medicine: Result - Labs CBC & Chem 7: 11/04/17 04:33 11/04/17 04:33 Labs: Short CBC 11/04/17 Range/Units 04:33 WBC 8.6 (4.3-11.1) K/mcL Hgb 7.3 L (11.5-15.4) g/dL Hct 23.2 L (35.3-44.9) % Plt Count 219 (140-400) K/mcL Neutrophils # 5.2 (1.6-8.9) K/mcL BMP 11/04/17 04:33 Sodium 141 Potassium 5.0 Chloride 103 Carbon Dioxide 25 BUN 47 H Creatinine 5.80 H Glucose 89 Calcium 9.3 - ABG Interpretation ABG results: PT/INR, D-dimer PT 11.5 Seconds (9.4-12.1) 11/01/17 23:24 Consult Discharge Plan - Plan Referrals: NONE,PCP [Primary Care Provider] - (patient is from [facility])
[2017-11-04] MEDS: Melatonin 3 MG TABLET PO SCH (20:12)
[2017-11-04] MEDS: Insulin DETEMIR 100 UNIT/ML X5UNITS SQ SCH (20:33)
[2017-11-05 05:16] LABS: Basophils % 0.1 %; Eosinophils # 0.2 K/mcL (0.0-0.6); Eosinophils % 3.2 %; Hematocrit 32.9 % (35.3-44.9); Immature Granulocytes % 0.3 % (0-4); Lymphocytes # 2.5 K/mcL (0.6-4.6); Lymphocytes % 33.1 %; Mean Corpuscular HGB Conc 32.2 g/dL (31.6-35.5); Mean Corpuscular Hemoglobin 28.3 pg (28.0-33.3); Mean Corpuscular Volume 87.7 fL (83.0-100.0); Mean Platelet Volume 10.6 fL (9.4-12.4); Monocytes # 0.4 K/mcL (0.0-1.3); Monocytes % 5.3 %; Neutrophils # 4.4 K/mcL (1.6-8.9); Platelet Count 242 K/mcL (140-400); Red Blood Count 3.75 M/mcL (3.82-4.97); Red Cell Distribution Width 16.6 % (11.5-14.5)
[2017-11-05 05:20] LABS: Hemoglobin 10.6 g/dL (11.5-15.4)
[2017-11-05] MEDS: *HR* Heparin 5,000 UNIT/ML VIAL SQ SCH ×2 (05:24→18:00)
[2017-11-05] MEDS: Levothyroxine 25 MCG TABLET PO SCH (05:24)
[2017-11-05 05:40] LABS: Calcium 9.9 mg/dL (8.6-10.3); Potassium 4.3 mEq/L (3.5-5.1)
[2017-11-05] MEDS: Insulin LISPRO 300 UNITS/3 ML VIAL SQ SCH ×4 (08:04→21:31)
[2017-11-05] MEDS: *HR* LORazepam 0.5 MG TABLET PO SCH ×2 (08:34→21:31)
[2017-11-05] MEDS: Renal Vitamin 1 MG CAPSULE PO SCH (08:34)
[2017-11-05] MEDS: Famotidine 20 MG TABLET PO SCH (08:34)
[2017-11-05] MEDS: Aspirin Enteric Coated 81 MG Tablet PO SCH (08:34)
[2017-11-05] MEDS: Loratadine 10 MG TABLET PO SCH (08:34)
--- NOTE | 2017-11-05 09:10 | Nephrology Progress Note ---
Date of Encounter: 11/05/17 Time of Encounter: 09:08 - Assessment and Plan (1) ESRD (end stage renal disease) on dialysis Current Visit: Yes Status: Acute HD MWF in [place] with Dr. Griffith. HD completed yesterday. Avoid nephrotoxins and renal dose all medications. Renal Vitamins. Renal Diet. HD tomorrow. (2) Anemia in chronic kidney disease (CKD) Current Visit: Yes Status: Chronic Goal Hgb 10-11. Hgb 10.6 2 Units PRBCS given yesterday in HD. Qualifiers: Chronic kidney disease stage: on chronic dialysis Qualified Code(s): N18.6 - End stage renal disease; D63.1 - Anemia in chronic kidney disease; Z99.2 - Dependence on renal dialysis (3) Congestive heart failure (CHF) Current Visit: Yes Status: Acute Per primary team. Qualifiers: Heart failure type: diastolic Heart failure chronicity: acute on chronic Qualified Code(s): I50.33 - Acute on chronic diastolic (congestive) heart failure Subjective Principal diagnosis: ESRD Interval history: Pt seen and examined, doing well. Objective - Vital Signs Vital signs: Vital Signs Temp Pulse Resp BP Pulse Ox 11/05/17 07:00 98.2 F 64 16 153/82 99 11/05/17 03:43 97.9 F 61 17 148/85 100 11/04/17 23:51 97.9 F 62 17 125/75 100 11/04/17 20:21 97.6 F 74 16 165/88 100 11/04/17 14:44 97.8 F 81 17 121/79 100 11/04/17 13:45 96.8 F L 16 136/80 11/04/17 13:20 111/67 11/04/17 13:05 114/73 11/04/17 12:50 121/73 11/04/17 12:40 97.3 F L 83 17 118/69 11/04/17 12:35 112/74 11/04/17 12:26 97.3 F L 83 19 123/81 11/04/17 12:20 112/65 11/04/17 12:11 96.8 F L 83 18 128/81 11/04/17 12:05 123/69 11/04/17 11:50 136/84 11/04/17 11:35 97.0 F L 88 18 128/56 11/04/17 11:20 112/51 11/04/17 11:10 97.0 F L 88 17 138/86 11/04/17 11:05 136/84 11/04/17 10:55 97.6 F 83 19 169/88 11/04/17 10:50 155/93 11/04/17 10:35 162/101 11/04/17 10:20 188/98 11/04/17 10:05 185/98 11/04/17 09:50 98.1 F 19 200/101 Intake and Output 11/04/17 11/05/17 11/05/17 23:59 07:59 15:59 Intake Total 0 / 0 100 / 100 Output Total 0 / 0 Balance 0 / 0 100 / 100 Intake: Oral 0 / 0 100 / 100 Output: Urine 0 / 0 Other: Weight 55.1 kg 55 kg Blood Glucose* 259 134 Patient Weight 11/05/17 23:59 Weight 55 kg - General Appearance General appearance: Present: chronically ill, frail EENT: Present: ATNC, hearing intact, vision intact Neck: Present: supple Respiratory: Present: clear Cardiology: Present: no edema, normal S1, normal S2 Dialysis Vascular Access: Arteriovenous Fistula thrill: Yes bruit: Yes Gastrointestinal: Present: normoactive bowel sounds, no tenderness, no guarding Integumentary: Present: no rash, warm and dry Neurologic: Present: confused Psychiatric: Present: mood/affect appropriate, cooperative - Lab 11/05/17 04:50 11/05/17 04:50 Most recent lab results Calcium 9.9 mg/dL (8.6-10.3) 11/05/17 04:50 Phosphorus 6.0 mg/dL (2.7-4.5) H 11/02/17 05:00 Magnesium 2.4 mg/dL (1.6-2.6) 11/02/17 05:00 Consult Discharge Plan - Plan Referrals: NONE,PCP [Primary Care Provider] - (patient is from [facility])
[2017-11-05] MEDS: BISOPROLOL FUMARATE 5 MG PO SCH (10:41)
--- NOTE | 2017-11-05 10:44 | Internal Med Progress Note ---
Date of Encounter: 11/05/17 Time of Encounter: 10:44 - Assessment and plan (1) ESRD (end stage renal disease) Current Visit: Yes Status: Chronic Assessment and plan: Management per nephrology (2) Anemia in chronic kidney disease (CKD) Current Visit: Yes Status: Chronic Assessment and plan: Hb 10 s/p 2 units RBCS Continue to monitor Qualifiers: Chronic kidney disease stage: on chronic dialysis Qualified Code(s): N18.6 - End stage renal disease; D63.1 - Anemia in chronic kidney disease; Z99.2 - Dependence on renal dialysis (3) Chronic kidney disease-mineral and bone disorder Current Visit: Yes Status: Acute (4) Congestive heart failure (CHF) Current Visit: Yes Status: Acute Assessment and plan: ECHO noted for EF of 50-55%, diastolic dysfunction with elevated filling pressures, continue HD CXR shows pulmonary edema, continue fluid restriction and HD Qualifiers: Heart failure type: diastolic Heart failure chronicity: acute on chronic Qualified Code(s): I50.33 - Acute on chronic diastolic (congestive) heart failure (5) Essential (primary) hypertension Current Visit: Yes Status: Chronic Assessment and plan: currently controlled, continue same meds (6) Left flank pain Current Visit: Yes Status: Acute Assessment and plan: improved see below (7) Chest pain Current Visit: Yes Status: Acute Assessment and plan: Trop and EKG unremarkable, however, CXR with pleural effusion L>R Also shows possible retrocardiac infiltrate Patient has no cough, afebrile, no white count Chest CT shows L pleural effusion > R s/p thoracentrnsis by IR, follow work up Repeat CXR shows improved aeration Qualifiers: Chest pain type: other chest pain Qualified Code(s): R07.89 - Other chest pain; R07.8 - Other chest pain (8) Pleural effusion Current Visit: Yes Status: Acute Assessment and plan: L > R Possibly transudate Follow work up - Time Spent With Patient Total time spent is greater than 50% in coordination of care (as documented) at patient's floor/unit and/or counseling patient: - Subjective Interval history: Seen and evaluated at the bedside No new complains AAOX3 Ct shows pleural effusion L>R IR guided thoracentensis requested She is otherwise stable for discharge but awaiting precert from [facility], SW is following - Constitutional Vitals: Temp Pulse Resp BP Pulse Ox 98.2 F 64 16 153/82 99 11/05/17 07:00 11/05/17 07:00 11/05/17 07:00 11/05/17 07:00 11/05/17 07:00 General appearance: Present: A&O X 3, pleasant, no acute distress - Head Head exam: Present: atraumatic, normocephalic - Eye Eye exam: Present: PERRL, conjuntiva pink, sclera anicteric Pupils: Present: PERRL - Neck Neck exam general surgery: Present: supple, trachea midline. Absent: lymphadenopathy - Respiratory Respiratory exam: Present: decreased breath sounds (L. Right side CTA) - Cardiovascular Cardiovascular exam: Present: RRR, +S1, +S2. Absent: diastolic murmur, gallop, rubs, systolic murmur - GI/Abdominal GI/Abdominal exam: Present: normal bowel sounds, soft, no peritoneal signs. Absent: distended, tenderness - Extremities Exam Extremities exam: Present: warm, radial pulses palpable and symmetrical. Absent : calf tenderness, cyanotic, pedal edema - Neurological Exam Neurological exam: Present: alert, CN II-XII intact, oriented X3, no focal deficits. Absent: pronater drift, facial droop, speech deficit - Skin Skin exam: Present: dry, intact Internal Medicine: Result - Labs CBC & Chem 7: 11/05/17 04:50 11/05/17 04:50 Labs: Short CBC 11/05/17 Range/Units 04:50 WBC 7.5 (4.3-11.1) K/mcL Hgb 10.6 L D (11.5-15.4) g/dL Hct 32.9 L (35.3-44.9) % Plt Count 242 (140-400) K/mcL Neutrophils # 4.4 (1.6-8.9) K/mcL BMP 11/05/17 04:50 Sodium 137 Potassium 4.3 Chloride 97 L Carbon Dioxide 30 H BUN 29 H Creatinine 3.85 H Glucose 137 H Calcium 9.9 - ABG Interpretation ABG results: PT/INR, D-dimer PT 11.5 Seconds (9.4-12.1) 11/01/17 23:24 - Impressions Impressions Chest CT 11/05/17 07:30 IMPRESSION: Bilateral pleural effusions larger on the left than on the right. D/ / 11/05/2017 09:01:10 Jori Maurer MD / christopher Interpreting Provider: Jori Maurer MD Consult Discharge Plan - Plan Referrals: NONE,PCP [Primary Care Provider] - (patient is from [facility])
--- NOTE | 2017-11-05 12:40 | Procedure Note ---
Date of procedure: 11/05/17 Pre-op diagnosis: Pleural effusion Post-op diagnosis: same Procedure: Date: 11/05/17 Time: 11:30 Indication: Large pleural effusion Resident: Brian Castillo Attending: Blair Huber A time-out was completed verifying correct patient, procedure, site, positioning , and special equipment if applicable. The patients left side was prepped and draped in a sterile manner after the appropriate infiltration level was confirmed by ultrasound. 1% lidocaine was used anesthetize the surrounding skin. A finder needle was then used to locate fluid and serosanguineous fluid was obtained. A 10-blade scalpel used to make the incision. The thoracentesis catheter was then threaded without difficulty. The patient had 250mL of serosanguineous fluid removed. Attending was present for the entire procedure. A post-procedure chest x-ray was ordered. Estimated Blood Loss: 2cc The patient tolerated the procedure well and there were no complications. Anesthesia: local Was there an ob gyn physician assistant present: Yes Valve And Regulator Repairer: Ashlie Martínez Estimated blood loss (cc): 2 Specimen: Pleural fluid Pathology: none sent Condition: stable Disposition: floor
[2017-11-05] MEDS: levETIRAcetam 250 MG TABLET PO SCH ×2 (13:13→21:30)
[2017-11-05] MEDS: Melatonin 3 MG TABLET PO SCH (21:30)
[2017-11-05] MEDS: Insulin DETEMIR 100 UNIT/ML X5UNITS SQ SCH (21:31)
[2017-11-06 04:43] LABS: Basophils % 0.2 %; Eosinophils # 0.2 K/mcL (0.0-0.6); Eosinophils % 2.7 %; Hematocrit 32.2 % (35.3-44.9); Hemoglobin 10.5 g/dL (11.5-15.4); Immature Granulocytes % 0.6 % (0-4); Lymphocytes # 2.8 K/mcL (0.6-4.6); Mean Corpuscular HGB Conc 32.6 g/dL (31.6-35.5); Mean Corpuscular Hemoglobin 28.5 pg (28.0-33.3); Mean Corpuscular Volume 87.3 fL (83.0-100.0); Mean Platelet Volume 11.3 fL (9.4-12.4); Monocytes # 0.5 K/mcL (0.0-1.3); Monocytes % 5.8 %; Neutrophils # 4.8 K/mcL (1.6-8.9); Platelet Count 218 K/mcL (140-400); Red Blood Count 3.69 M/mcL (3.82-4.97); Red Cell Distribution Width 16.4 % (11.5-14.5); Segmented Neutrophils % 57.7 %
[2017-11-06 05:20] LABS: Calcium 9.5 mg/dL (8.6-10.3); Potassium 5.7 mEq/L (3.5-5.1)
[2017-11-06] MEDS: Levothyroxine 25 MCG TABLET PO SCH (07:03)
[2017-11-06] MEDS: *HR* Heparin 5,000 UNIT/ML VIAL SQ SCH (07:03)
[2017-11-06] MEDS ORDERED: 0.9 % Sodium Chloride 250 ML IVC PRN (07:10)
[2017-11-06] MEDS ORDERED: 0.9 % Sodium Chloride 1,000 ML PRIME SCH (07:15)
[2017-11-06] MEDS ORDERED: 0.9 % Sodium Chloride 1,000 ML ONE ×2 (07:36→11:56)
[2017-11-06] MEDS: Insulin LISPRO 300 UNITS/3 ML VIAL SQ SCH ×2 (08:17→12:05)
[2017-11-06] MEDS: levETIRAcetam 250 MG TABLET PO SCH (08:19)
[2017-11-06] MEDS: *HR* LORazepam 0.5 MG TABLET PO SCH (08:19)
[2017-11-06] MEDS: Famotidine 20 MG TABLET PO SCH (08:19)
[2017-11-06] MEDS: Aspirin Enteric Coated 81 MG Tablet PO SCH (08:19)
[2017-11-06] MEDS: Loratadine 10 MG TABLET PO SCH (08:20)
[2017-11-06] MEDS: Renal Vitamin 1 MG CAPSULE PO SCH (08:20)
--- NOTE | 2017-11-06 10:13 | Nephrology Progress Note ---
Date of Encounter: 11/06/17 Time of Encounter: 10:11 - Assessment and Plan (1) ESRD (end stage renal disease) on dialysis Current Visit: Yes Status: Acute HD MWF in [place] with Dr. Griffith. HD today. Avoid nephrotoxins and renal dose all medications. Renal Vitamins. Renal Diet. (2) Anemia in chronic kidney disease (CKD) Current Visit: Yes Status: Chronic Goal Hgb 10-11. Hgb 10.5 2 Units PRBCS given Thursday. Qualifiers: Chronic kidney disease stage: on chronic dialysis Qualified Code(s): N18.6 - End stage renal disease; D63.1 - Anemia in chronic kidney disease; Z99.2 - Dependence on renal dialysis (3) Congestive heart failure (CHF) Current Visit: Yes Status: Chronic Per primary team. Qualifiers: Heart failure type: diastolic Heart failure chronicity: acute on chronic Qualified Code(s): I50.33 - Acute on chronic diastolic (congestive) heart failure Subjective Principal diagnosis: ESRD Interval history: Pt seen and examined, during HD, doing well. Objective - Vital Signs Vital signs: Vital Signs Temp Pulse Resp BP Pulse Ox 11/06/17 06:48 97.6 F 64 18 157/70 100 11/06/17 04:16 97.6 F 66 16 178/83 100 11/05/17 23:47 97.7 F 74 16 144/76 95 11/05/17 18:34 98.5 F 82 16 172/97 100 11/05/17 15:30 98.1 F 76 16 136/84 99 11/05/17 11:15 97.7 F 61 16 126/76 100 Intake and Output 11/05/17 11/06/17 11/06/17 23:59 07:59 15:59 Intake Total 240 / 240 Balance 240 / 240 Intake: Oral 240 / 240 Other: Meal Breakfast Percent of Meal Consumed 50% Weight 55.429 kg Blood Glucose* 243 170 Patient Weight 11/06/17 23:59 Weight 55.429 kg - General Appearance General appearance: Present: chronically ill, frail EENT: Present: ATNC, hearing intact, vision intact Neck: Present: supple Respiratory: Present: clear Cardiology: Present: no edema, regular rate, regular rhythm, normal S1, normal S2 Dialysis Vascular Access: Arteriovenous Fistula thrill: Yes bruit: Yes Gastrointestinal: Present: normoactive bowel sounds, no tenderness, no guarding Integumentary: Present: no rash, warm and dry Additional Comments: Alert to self. Psychiatric: Present: mood/affect appropriate, cooperative - Lab 11/06/17 04:12 11/06/17 04:12 Most recent lab results Calcium 9.5 mg/dL (8.6-10.3) 11/06/17 04:12 Phosphorus 6.0 mg/dL (2.7-4.5) H 11/02/17 05:00 Magnesium 2.4 mg/dL (1.6-2.6) 11/02/17 05:00 Consult Discharge Plan - Plan Referrals: NONE,PCP [Primary Care Provider] - ([facility] Prescriptions: LORazepam [Ativan] 0.5 mg PO BID 4 Days #8 tablet Tramadol HCl [Ultram] 50 mg PO Q6H PRN 4 Days #16 tablet PRN Reason: Pain
--- NOTE | 2017-11-06 11:52 | Discharge Summary ---
- NOTES TO OUTPATIENT PROVIDER Notes to Outpatient Provider: Patient was hospitalized after complaining of L flank pain and chest ain, which was found to be non-cardiac and due to L pleural effusion . She was managed with HD, and therapeutic thoracentensis. She is clinically discharged back to [facility] in stable clinical condition Orders not resulted at time of discharge: Pending orders 11/05/17 08:21 Albumin,Pleural Fluid [BF] Routine Cell Count w Diff, Pleural Fld [BF] Routine Glucose,Pleural Fluid [BF] Routine LDH,Pleural Fluid [BF] Routine Total Protein,Pleural Fluid [BF] Routine pH,Pleural Fluid [BF] Routine Date of Encounter: 11/06/17 Time of Encounter: 11:49 - Discharge Diagnosis (1) ESRD (end stage renal disease) Priority: Secondary Status: Chronic (2) Anemia in chronic kidney disease (CKD) Priority: Secondary Status: Chronic Qualifiers: Chronic kidney disease stage: on chronic dialysis Qualified Code(s): N18.6 - End stage renal disease; D63.1 - Anemia in chronic kidney disease; Z99.2 - Dependence on renal dialysis (3) Chronic kidney disease-mineral and bone disorder Priority: Secondary Status: Chronic (4) Congestive heart failure (CHF) Priority: Primary Status: Chronic Qualifiers: Heart failure type: diastolic Heart failure chronicity: acute on chronic Qualified Code(s): I50.33 - Acute on chronic diastolic (congestive) heart failure (5) Essential (primary) hypertension Priority: Secondary Status: Chronic (6) Left flank pain Priority: Secondary Status: Resolved (7) Chest pain Priority: Secondary Status: Resolved Qualifiers: Chest pain type: other chest pain Qualified Code(s): R07.89 - Other chest pain; R07.8 - Other chest pain Hospital course: Ms. Martinez is a 62 year old female with ESRD on HD who presented with complains of L flank and chest pain . Patient seemed to have confusion intermittently, per nephrology, she was sent to this facility for HD due to water issues at her home HD facility. Work up here showed anemia with Hb of 7, chem at baseline, [employer] with bilateral pleural effusions, Pulmonary vascular congestion and cardiomegaly. EKG was non-ischemic, troponin was negative. ECHO showed EF of 50-55%, diastolic dysfunction with elevated filling pressures , repeat CXR after HD showed pulmonary edema. She had sevral sessions of HD with resolution of symptoms, she also received 2 units of RBCS and HB is stable at 10. We consulted IR for L thoracentensis due to moderate L effusion, she is now s/p 250cc of pleural fluid removal She is seen and examined at the bedside this a.m, receiving HD, no new complains , states chest and flank pain have resolved. Physical exam is unremarkable, she will be discharged to SNF in clinically stable condition after HD Discharge discussed with: patient, nurse, social work - Time Spent with Patient Total time spent providing and/or coordinating discharge services: Greater than 30 minutes - Discharge Medications Prescriptions: LORazepam [Ativan] 0.5 mg PO BID 4 Days #8 tablet Tramadol HCl [Ultram] 50 mg PO Q6H PRN 4 Days #16 tablet PRN Reason: Pain Home Medications: Aspirin [Lo-Dose Aspirin EC] 81 mg PO DAILY 11/01/17 [History] Atorvastatin [Lipitor] 80 mg PO HS 11/01/17 [History] Clopidogrel [Plavix] 75 mg PO DAILY 11/01/17 [History] Famotidine [Heartburn Prevention] 20 mg PO DAILY 11/01/17 [History] Ferrous Sulfate [Iron] 325 mg PO DAILY 11/01/17 [History] Insulin Glargine,Hum.rec.anlog [Basaglar Kwikpen U-100] 7 unit SQ HS 11/01/17 [ History] Insulin LISPRO [Humalog Kwikpen U-100] 5 unit SQ [facility] 11/01/17 [History] LevETIRAcetam [Keppra] 750 mg PO SUMOWEFR 11/01/17 [History] LevETIRAcetam [Keppra] 750 mg PO TUTHSA@0800,199911/01/17 [History] Levothyroxine Sodium [Levoxyl] 25 mcg PO DAILY 11/01/17 [History] Loperamide [Imodium] 4 mg PO PRN PRN MDD 6 tablets 11/01/17 [History] Loratadine [Allergy Relief] 10 mg PO DAILY 11/01/17 [History] Losartan Potassium [Cozaar] 50 mg PO DAILY 11/01/17 [History] Melatonin [Melatin] 3 mg PO HS 11/01/17 [History] Ondansetron HCl [Zofran] 4 mg PO Q6H PRN 11/01/17 [History] Renal Vitamin [Renal Caps Softgel] 1 mg PO DAILY 11/01/17 [History] Sevelamer [Renvela] 800 mg PO TID 11/01/17 [History] Bisoprolol Fumarate 2.5 mg PO QAM 11/02/17 [History] Lidocaine/Prilocaine [Medolor Blaine 2.5-2.5% Crm-Dress] 1 each TP MOWEFR 11/02/17 [History] Tiotropium [Spiriva] 18 mcg IH QAM 11/02/17 [History] LORazepam [Ativan] 0.5 mg PO BID 4 Days #8 tablet 11/06/17 [Rx] Tramadol HCl [Ultram] 50 mg PO Q6H PRN 4 Days #16 tablet 11/06/17 [Rx] Allergies/Adverse Reactions: 3 Allergy/AdvReac Type Severity Reaction Status Date / Time Iodinated Contrast- Oral and Allergy Rash Verified 11/01/17 22:30 IV Dye Sulfa (Sulfonamide Allergy Rash Verified 11/01/17 22:30 Antibiotics) sulfamethoxazole Allergy Rash Verified 11/01/17 22:30 [From Bactrim] trimethoprim Allergy Rash Verified 11/01/17 22:30 Date of admission: 11/01/17 18:42 Primary care physician: PCP NONE Consults: 11/02/17 10:58 Consult to Nephrology [CONS] Routine Consulting Provider: Kidney Sandy/STEPHANI/TY/KELLEN Reason for Consult: [facility]wf dialysis Call Completed: Yes Consult to [employer] [CONS] Routine Reason for SW Consult: snf 11/02/17 11:25 Consult to Physical Therapy [CONS] Routine Comment: Evaluate, develop and implement POC Reason for Consult: snf placement Does patient have active BEDREST order?: No Is patient medically & hemodynamically stable?: Yes 11/02/17 11:28 Consult to Occupational Therapy [CONS] Routine Comment: Evaluate, develop and implement POC Reason for Consult: snf Does patient have active BEDREST order?: No Is patient medically & hemodynamically stable?: Yes 11/02/17 15:45 Consult to Dialysis [CONS] ONCE 11/04/17 07:45 Consult to Dialysis [CONS] ONCE 11/05/17 08:22 Consult to Interventional Radiology [CONS] Routine Consulting Provider: Radiology Interventional Cols Reason for Consult: L pleural effusion Call Completed: Yes 11/06/17 07:15 Consult to Dialysis [CONS] ONCE Discharging clinician: Bernard Amado Anticipated date of discharge: 11/06/17 - Constitutional Vitals: Temp Pulse Resp BP Pulse Ox 97.6 F 64 18 157/70 100 11/06/17 06:48 11/06/17 06:48 11/06/17 06:48 11/06/17 06:48 11/06/17 06:48 General appearance: Present: A&O X 2 (to place and person, disoriented to time) - Head Head exam: Present: atraumatic, normocephalic - Eye Eye exam: Present: PERRL, conjuntiva pink, sclera anicteric Pupils: Present: PERRL - Neck Neck exam general surgery: Present: supple, trachea midline. Absent: lymphadenopathy - Respiratory Respiratory exam: Present: CTAB - Cardiovascular Cardiovascular exam: Present: RRR, +S1, +S2. Absent: diastolic murmur, gallop, rubs, systolic murmur - GI/Abdominal GI/Abdominal exam: Present: normal bowel sounds, soft, no peritoneal signs. Absent: distended, tenderness - Extremities Exam Extremities exam: Present: warm, radial pulses palpable and symmetrical. Absent : calf tenderness, cyanotic, pedal edema - Neurological Exam Neurological exam: Present: alert, CN II-XII intact, oriented X3, no focal deficits. Absent: pronater drift, facial droop, speech deficit - Skin Skin exam: Present: dry, intact - Patient Status Disposition: Transfer SNF Condition: Fair Functional capacity at discharge: uses cane/walker Overall status at discharge: patient is progressing back to baseline - Discharge Instructions Follow Up With: NONE,PCP [Primary Care Provider] - (patient is from [facility]) - Diet and Activity Activity: resume usual activities as tolerated Diet: low salt diet
[2017-11-06] MEDS: BISOPROLOL FUMARATE 5 MG PO SCH (11:56)
--- NOTE | 2017-11-06 11:56 | Physician Discharge Referral ---
ExtendedCare Referral Info Transfer To: SNF Provider in Charge: Boom Amado Provider in Charge after Transfer: PCP Institutional Level of Care: Skilled - Diagnosis (1) ESRD (end stage renal disease) Priority: Secondary Status: Chronic (2) Anemia in chronic kidney disease (CKD) Priority: Secondary Status: Chronic (3) Chronic kidney disease-mineral and bone disorder Priority: Secondary Status: Acute (4) Congestive heart failure (CHF) Priority: Secondary Status: Acute (5) Essential (primary) hypertension Priority: Secondary Status: Chronic (6) Left flank pain Priority: Primary Status: Resolved (7) Chest pain Priority: Primary Status: Resolved Prognosis: Fair Aware of Diagnosis: Patient Aware of Prognosis: Patient - Transfer Medications Prescriptions: LORazepam [Ativan] 0.5 mg PO BID 4 Days #8 tablet Tramadol HCl [Ultram] 50 mg PO Q6H PRN 4 Days #16 tablet PRN Reason: Pain Home Medications: Aspirin [Lo-Dose Aspirin EC] 81 mg PO DAILY 11/01/17 [History] Atorvastatin [Lipitor] 80 mg PO HS 11/01/17 [History] Clopidogrel [Plavix] 75 mg PO DAILY 11/01/17 [History] Famotidine [Heartburn Prevention] 20 mg PO DAILY 11/01/17 [History] Ferrous Sulfate [Iron] 325 mg PO DAILY 11/01/17 [History] Insulin Glargine,Hum.rec.anlog [Basaglar Kwikpen U-100] 7 unit SQ HS 11/01/17 [ History] Insulin LISPRO [Humalog Kwikpen U-100] 5 unit SQ [facility] 11/01/17 [History] LevETIRAcetam [Keppra] 750 mg PO SUMOWEFR 11/01/17 [History] LevETIRAcetam [Keppra] 750 mg PO TUTHSA@0800,2000 11/01/17 [History] Levothyroxine Sodium [Levoxyl] 25 mcg PO DAILY 11/01/17 [History] Loperamide [Imodium] 4 mg PO PRN PRN MDD 6 tablets 11/01/17 [History] Loratadine [Allergy Relief] 10 mg PO DAILY 11/01/17 [History] Losartan Potassium [Cozaar] 50 mg PO DAILY 11/01/17 [History] Melatonin [Melatin] 3 mg PO HS 11/01/17 [History] Ondansetron HCl [Zofran] 4 mg PO Q6H PRN 11/01/17 [History] Renal Vitamin [Renal Caps Softgel] 1 mg PO DAILY 11/01/17 [History] Sevelamer [Renvela] 800 mg PO TID 11/01/17 [History] Bisoprolol Fumarate 2.5 mg PO QAM 11/02/17 [History] Lidocaine/Prilocaine [Medolor Blaine 2.5-2.5% Crm-Dress] 1 each TP MOWEFR 11/02/17 [History] Tiotropium [Spiriva] 18 mcg IH QAM 11/02/17 [History] LORazepam [Ativan] 0.5 mg PO BID 4 Days #8 tablet 11/06/17 [Rx] Tramadol HCl [Ultram] 50 mg PO Q6H PRN 4 Days #16 tablet 11/06/17 [Rx] Allergies/Adverse Reactions: 3 Allergy/AdvReac Type Severity Reaction Status Date / Time Iodinated Contrast- Oral and Allergy Rash Verified 11/01/17 22:30 IV Dye Sulfa (Sulfonamide Allergy Rash Verified 11/01/17 22:30 Antibiotics) sulfamethoxazole Allergy Rash Verified 11/01/17 22:30 [From Bactrim] trimethoprim Allergy Rash Verified 11/01/17 22:30 - Respiratory Orders Oxygen / L per min Smoking Cessation: Smoking cessation has been advised. For more information, call the [place] Tobacco Quit Line at 9-525-ZONF-NOW. - Mobility Orders Ambulate - Diet Orders Renal, Cardiac CERTIFICATION: I certify that the transfer of the above named patient to an Extended Care Facility is necessary for the continuing treatment of the diagnosis listed. The above information is true and accurate reflection of patient's current condition. Confidential - Redisclosure prohibited without a patient's written consent.
[2017-11-06 15:55] VITALS: BP 103/58
== END 2017-11-06 15:37 ==
LOC: 2ANU → SUATTDRO 18:42
PROVIDERS: ADMIT Hospitalist; ATTEND Internal Medicine